=== PATIENT | female | born 1950 | race American Indian/Alaskan Native ===

== ENCOUNTER 2018-08-20 07:30 | Day surgery (SDC) | payer MEDICARE ==
[~2018-08-20 07:30] MED LIST: TETRACAINE 0.5% OD SCH
--- NOTE | 2018-08-20 08:55 | Anesthesia Day of Surgery ---
Anesthesia Day of Surgery - Day of Surgery Patient Examined: Yes Patient H&P Reviewed: Yes Patient is NPO: Yes
--- NOTE | 2018-08-20 08:55 | Anesthesia Consultation ---
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
[2018-08-20] MEDS ORDERED: NACL 0.9% 1000 ML 1,000 ML IV SCH (09:00)
[2018-08-20] MEDS ORDERED: PEPCID PO NR (09:00)
[2018-08-20] MEDS ORDERED: ZOFRAN IV PRN (09:00)
[2018-08-20] MEDS ORDERED: SUBLIMAZE IV PRN (09:00)
[2018-08-20] MEDS: VIGAMOX OD SCH ×3 (09:05→09:15)
[2018-08-20] MEDS: MYDRIACYL OD SCH ×3 (09:05→09:15)
[2018-08-20] MEDS: AK-Dilate OD SCH ×3 (09:05→09:15)
[2018-08-20] MEDS ORDERED: SUBLIMAZE ONE (09:47)
[2018-08-20] MEDS ORDERED: VERSED ONE (09:47)
[2018-08-20] MEDS ORDERED: PRED FORTE 1% OD NR (10:17)
--- NOTE | 2018-08-20 10:18 | Operative Report ---
Operative Report Operative Report: PATIENT'S NAME: DATE OF : DATE OF SURGERY: 08/20/2018 PREOPERATIVE DIAGNOSIS: Cataract right eye POSTOPERATIVE DIAGNOSIS: Same OPERATIVE PROCEDURE: Phacoemulsification with intraocular lens implantation, right eye SURGEON: Jasmyn Espinoza M.D. FLOW MATCH SOFA CUTTER SURGEON: Sara Lens: [id number] 22.5 D ANESTHESIA: Monitored anesthesia care in combination with topical and intracameral anesthesia because of the established specific risk of reflux, arrhythmias, or anxiety attacks associated with ocular manipulation, as well as the difficulty of the lithographer apprentice to manage such potentially catastrophic events while simultaneously attempting to complete the surgical procedure and was deemed necessary for the patient's safety to have an Driver Starting Gate present during the procedure whenever possible. An Driver Starting Gate was utilized to regulate the intravenous sedation of the patient so the patient was cooperative yet not asleep in order for the patient to successfully maintain fixation of the eye on the operating light of the microscope. COMPLICATIONS: No surgical complications No blood loss. ALLERGIES: Amoxicillin, TB PROGNOSIS: Excellent INDICATIONS FOR SURGERY: The patient is undergoing surgery in the hopes of eliminating or improving these visual difficulties. PROCEDURE: After arriving at the surgery center, the patient was given topical anesthetic and dilating drops, as noted in the record. The patient was then taken into the operating room and given more anesthetic drops. The eyelids, lashes, and lid margins were scrubbed with Betadine solution, and the patient was draped. The Nurse Driver Starting Gate administered IV sedation and monitored the patient during the procedure. The eye was then fixated with a 0.12, and a stab incision was made in the peripheral clear cornea into the anterior chamber. This was made on my left side. Viscoelastic was next used to fill the anterior chamber. The eye was once again fixated with the 0.12 forceps and a keratome was used make an incision in clear cornea peripherally on my right hand side temporally. The capsule forceps were used to open the central anterior capsule and then make a continuous round capsulotomy. Hydrodissection was carried out utilizing a cannula and balanced salt solution to delineate the cortical material from the capsule and the nucleus from the cortical material. The phaco tip was introduced into the eye and used to remove the anterior cortical material in the area of the capsulotomy. Then the phaco tip was buried into the nucleus, and a chopping instrument was introduced into the eye and used to provide countertraction in the nucleus between this instrument and the phaco tip fracturing the nucleus. This procedure was repeated multiple times, providing multiple small segments of the lens, and then the phaco tip was used to remove each of these segments. An I/A tip was then used to remove the remaining cortex. The anterior chamber was refilled with viscoelastic. An one-piece, acrylic intraocular lens was then placed into an inserting cartridge. The tip of the inserting cartridge was introduced into the keratome incision and into the anterior chamber. The implant was gently advanced through the cartridge and into the eye, where it unfolded, and both haptics were placed in the capsular bag, where it centered nicely and appeared to be well fixated. After placement of the intraocular lens, the I~and~A handpiece was placed back into the eye and used to remove the viscoelastic, including viscoelastic that was behind the optic of the intraocular lens. The anterior chamber was then filled with balanced salt solution, and hydration of the wound was used to cause swelling of the wound and more appropriate watertight closure. When the wound was found to be firm, the patient was asked to comment on how bright the light was. If there was no light perception at all or if the light was substantially dimmer than during the rest of the surgery, the amount of fluid in the eye was decompressed to lower the intraocular pressure until the patient could see the bright light again. This was done to avoid any damage or decreased blood flow to the optic nerve. MEDICATIONS APPLIED AT END OF SURGERY: One drop of Pred Forte and Vigamox The patient was given a shield to wear at night and was instructed not to rub or push on the eye. DISCHARGE SUMMARY: The patient was released in stable condition. The patient and those with the patient were given a written sheet of postoperative instructions and counseling on any abnormal laboratory studies. The patient is to see us tomorrow for follow-up in the office and is to call immediately for any difficulties. Jasmyn Espinoza M.D. Date
--- NOTE | 2018-08-20 10:19 | Short Stay Summary ---
Short Stay Documentation Date of service: 08/20/18 - History H&P: obtained from office - Allergies and Medications Current Medications: Allergies amoxicillin Allergy (Verified 08/19/18 18:11) Hives tuberculin, purified protein deriva Allergy (Verified 08/19/18 18:11) Swelling Home Medications Medication Instructions Recorded Confirmed Last Taken Type ALPRAZolam [Xanax TAB] 0.5 mg PO BID PRN 08/19/18 08/19/18 Unknown History Atorvastatin Calcium [Lipitor] 80 mg PO QHS 08/19/18 08/19/18 Unknown History Azilsartan Med/Chlorthalidone 1 each PO DAILY 08/19/18 08/19/18 Unknown History [Edarbyclor 40-25 mg] Cholecalciferol Vit D3 [Vitamin D3 400 unit PO QDAY 08/19/18 08/19/18 Unknown History 400 UNIT TAB] Cyclobenzaprine [Flexeril] 10 mg PO TID PRN 08/19/18 08/19/18 Unknown History DULoxetine [Cymbalta] 30 mg PO QHS 08/19/18 08/19/18 Unknown History Duloxetine HCl [Cymbalta] 60 mg PO QAM 08/19/18 08/19/18 Unknown History Fluticasone [Flonase] 1 spray NS QDAY 08/19/18 08/19/18 Unknown History Levothyroxine [Synthroid] 50 mcg PO QAM 08/19/18 08/19/18 Unknown History Omeprazole 80 mg PO QAM 08/19/18 08/19/18 Unknown History Zafirlukast [Accolate] 10 mg PO BID 08/19/18 08/19/18 Unknown History amLODIPine [Norvasc] 10 mg PO QHS 08/19/18 08/19/18 Unknown History cloNIDine [Catapres] 0.1 mg PO QHS 08/19/18 08/19/18 Unknown History cloNIDine-TTS PATCH [Catapres-Tts 1 patch TD Q7D 08/19/18 08/19/18 Unknown History 0.3mg Patch] metFORMIN [Glucophage] 500 mg PO BID 08/19/18 08/19/18 Unknown History Active Medications Acetazolamide (Diamox) 500 mg PO ONCE ONE Stop: 08/20/18 10:18 Famotidine (Pepcid) 20 mg PO PREOP NR Stop: 08/20/18 14:00 Fentanyl (Sublimaze) 50 mcg IV Q5MIN PRN PRN Reason: Pain , Severe (7-10) Stop: 08/20/18 20:00 Sodium Chloride (Nacl 0.9% 1000 Ml) 1,000 mls @ 75 mls/hr IV DIRECT KENDRA Moxifloxacin HCl (Vigamox) 1 drops OD Q5MIN KENDRA Stop: 08/20/18 23:59 Ondansetron HCl (Zofran) 4 mg IV ONCE PRN PRN Reason: Nausea And Vomiting Stop: 08/20/18 20:00 Phenylephrine HCl (Ak-Dilate) 1 drops OD Q5MIN KENDRA Stop: 08/20/18 23:59 Prednisolone Acetate (Pred Forte 1%) 1 drops OD ONCE ONE Stop: 08/20/18 10:18 Tetracaine HCl (Tetracaine 0.5%) 1 drops OD Q5M KENDRA Stop: 08/20/18 23:59 Tropicamide (Mydriacyl) 1 drops OD Q5MIN KENDRA Stop: 08/20/18 23:59 - Brief post op/procedure progress note Date of procedure: 08/20/18 Pre-op diagnosis: right cataract Post-op diagnosis: same Procedure: Phacoemulsification with intraocular lens insertion right eye Anesthesia: MAC, local Surgeon: ALLYSSA ROLDAN Estimated blood loss: none Pathology: none Condition: stable - Disposition Condition at discharge: Good Disposition: DC-01 TO HOME OR SELFCARE - Discharge Diagnoses (1) Cortical age-related cataract of right eye Status: Resolved Short Stay Discharge Plan Follow up with: LUISANA BENSON MD [Primary Care Provider] - 7 Days
[2018-08-20] MEDS ORDERED: DIAMOX PO NR (10:30)
[2018-08-20 11:09] VITALS: BP 115/75
--- NOTE | 2018-08-20 12:16 | Post Anesthesia Evaluation ---
- Post Anesthesia Evaluation Patient Participated: Yes Airway Patent: Yes Stable Respiratory Function: Yes Nausea/Vomiting: No Temp > 96.8F: Yes Pain Manageable: Yes Adequeate Hydration: Yes Anesthesia Complications: No
== END 2018-08-20 11:00 | disposition home or self-care (01) ==
LOC: OR 07:30
DX: E11.36 Type 2 diabetes mellitus with diabetic cataract (principal); H25.011 Cortical age-related cataract, right eye; E78.00 Pure hypercholesterolemia, unspecified; I10 Essential (primary) hypertension; J45.909 Unspecified asthma, uncomplicated; G47.30 Sleep apnea, unspecified; K21.9 Gastro-esophageal reflux disease without esophagitis; E66.9 Obesity, unspecified; E11.42 Type 2 diabetes mellitus with diabetic polyneuropathy; M19.90 Unspecified osteoarthritis, unspecified site; Z98.890 Other specified postprocedural states; Z80.8 Family history of malignant neoplasm of other organs or systems; Z88.6 Allergy status to analgesic agent; Z79.899 Other long term (current) drug therapy; Z79.84 Long term (current) use of oral hypoglycemic drugs; Z87.891 Personal history of nicotine dependence; Z90.49 Acquired absence of other specified parts of digestive tract; Z68.37 Body mass index [BMI] 37.0-37.9, adult; Z98.51 Tubal ligation status; Z88.8 Allergy status to other drugs, medicaments and biological substances; Z86.73 Personal history of transient ischemic attack (TIA), and cerebral infarction without residual deficits
CPT/HCPCS: 66984; 82962; J2250; J3010; V2632

== ENCOUNTER 2018-09-10 06:01 | Day surgery (SDC) | payer MEDICARE ==
[~2018-09-10 06:01] MED LIST changes: -TETRACAINE 0.5% OD SCH; +TETRACAINE 0.5% OS SCH
--- NOTE | 2018-09-10 06:44 | Anesthesia Consultation ---
Anesthesia Consult and Med Hx Date of service: 09/10/18 - Airway Anesthetic Teeth Evaluation: Dentures ROM Head & Neck: Adequate Mental/Hyoid Distance: Adequate Mallampati Class: Class II Intubation Access Assessment: Probably Good - Pulmonary Exam CTA: Yes - Cardiac Exam Cardiac Exam: RRR - Pre-Operative Health Status ASA Pre-Surgery Classification: ASA3 Proposed Anesthetic Plan: MAC - Pulmonary Hx Smoking: Yes (STARTED AGE 16; QUIT 1994) Hx Asthma: Yes (RESCUE INHALER, breathing at baseline today) Hx Sleep Apnea: Yes - Cardiovascular System Hx Hypertension: Yes (1993) - Central Nervous System CVA: Yes (1993-R SIDE WEAK) Hx Back Pain: Yes (R SCIATICA) Hx Psychiatric Problems: No - Gastrointestinal Hx Gastroesophageal Reflux Disease: Yes (no problems in a long time) - Endocrine Hx Non-Insulin Dependent Diabetes: Yes - Other Systems Hx Obesity: Yes
--- NOTE | 2018-09-10 06:44 | Anesthesia Day of Surgery ---
Anesthesia Day of Surgery - Day of Surgery Patient Examined: Yes Patient H&P Reviewed: Yes Patient is NPO: Yes
[2018-09-10] MEDS: AK-Dilate OS SCH ×3 (06:50→07:00)
[2018-09-10] MEDS: MYDRIACYL OS SCH ×3 (06:50→07:00)
[2018-09-10] MEDS: VIGAMOX OS SCH ×3 (06:50→07:00)
[2018-09-10] MEDS ORDERED: PEPCID PO NR (07:00)
[2018-09-10] MEDS ORDERED: WATER FOR IRRIG STERILE IR ONE (07:22)
[2018-09-10] MEDS ORDERED: VERSED ONE (07:23)
[2018-09-10] MEDS ORDERED: SUBLIMAZE ONE (07:23)
[2018-09-10] MEDS ORDERED: mitoMYcin 0.02% Opth Soln *OR USE ONLY OP ONE (08:42)
--- NOTE | 2018-09-10 08:43 | Operative Report ---
Operative Report Operative Report: PATIENT'S NAME: DATE OF : DATE OF SURGERY: 09/10/2018 PREOPERATIVE DIAGNOSIS: Cataract left eye POSTOPERATIVE DIAGNOSIS: Same OPERATIVE PROCEDURE: Phacoemulsification with intraocular lens implantation, left eye SURGEON: Jasmyn Espinoza M.D. COLLECTION CARD CLERK SURGEON: Sara Lens: [id number] 21.5 D ANESTHESIA: Monitored anesthesia care in combination with topical and intracameral anesthesia because of the established specific risk of reflux, arrhythmias, or anxiety attacks associated with ocular manipulation, as well as the difficulty of the medical officer psychiatry to manage such potentially catastrophic events while simultaneously attempting to complete the surgical procedure and was deemed necessary for the patient's safety to have an General Accounting Clerk present during the procedure whenever possible. An General Accounting Clerk was utilized to regulate the intravenous sedation of the patient so the patient was cooperative yet not asleep in order for the patient to successfully maintain fixation of the eye on the operating light of the microscope. COMPLICATIONS: No surgical complications No blood loss. ALLERGIES: Amoxicillin, TB PROGNOSIS: Excellent INDICATIONS FOR SURGERY: The patient is undergoing surgery in the hopes of eliminating or improving these visual difficulties. PROCEDURE: After arriving at the surgery center, the patient was given topical anesthetic and dilating drops, as noted in the record. The patient was then taken into the operating room and given more anesthetic drops. The eyelids, lashes, and lid margins were scrubbed with Betadine solution, and the patient was draped. The Nurse General Accounting Clerk administered IV sedation and monitored the patient during the procedure. The eye was then fixated with a 0.12, and a stab incision was made in the peripheral clear cornea into the anterior chamber. This was made on my left side. Viscoelastic was next used to fill the anterior chamber. The eye was once again fixated with the 0.12 forceps and a keratome was used make an incision in clear cornea peripherally on my right hand side temporally. The capsule forceps were used to open the central anterior capsule and then make a continuous round capsulotomy. Hydrodissection was carried out utilizing a cannula and balanced salt solution to delineate the cortical material from the capsule and the nucleus from the cortical material. The phaco tip was introduced into the eye and used to remove the anterior cortical material in the area of the capsulotomy. Then the phaco tip was buried into the nucleus, and a chopping instrument was introduced into the eye and used to provide countertraction in the nucleus between this instrument and the phaco tip fracturing the nucleus. This procedure was repeated multiple times, providing multiple small segments of the lens, and then the phaco tip was used to remove each of these segments. An I/A tip was then used to remove the remaining cortex. The anterior chamber was refilled with viscoelastic. An one-piece, acrylic intraocular lens was then placed into an inserting cartridge. The tip of the inserting cartridge was introduced into the keratome incision and into the anterior chamber. The implant was gently advanced through the cartridge and into the eye, where it unfolded, and both haptics were placed in the capsular bag, where it centered nicely and appeared to be well fixated. After placement of the intraocular lens, the I~and~A handpiece was placed back into the eye and used to remove the viscoelastic, including viscoelastic that was behind the optic of the intraocular lens. The anterior chamber was then filled with balanced salt solution, and hydration of the wound was used to cause swelling of the wound and more appropriate watertight closure. When the wound was found to be firm, the patient was asked to comment on how bright the light was. If there was no light perception at all or if the light was substantially dimmer than during the rest of the surgery, the amount of fluid in the eye was decompressed to lower the intraocular pressure until the patient could see the bright light again. This was done to avoid any damage or decreased blood flow to the optic nerve. MEDICATIONS APPLIED AT END OF SURGERY: One drop of Pred Forte and Vigamox The patient was given a shield to wear at night and was instructed not to rub or push on the eye. DISCHARGE SUMMARY: The patient was released in stable condition. The patient and those with the patient were given a written sheet of postoperative instructions and counseling on any abnormal laboratory studies. The patient is to see us tomorrow for follow-up in the office and is to call immediately for any difficulties. Jasmyn Espinoza M.D. Date
--- NOTE | 2018-09-10 08:44 | Short Stay Summary ---
Short Stay Documentation Date of service: 09/10/18 - History H&P: obtained from office - Allergies and Medications Current Medications: Allergies amoxicillin Allergy (Verified 09/09/18 09:18) Hives tuberculin, purified protein deriva Allergy (Verified 09/09/18 09:18) Swelling Home Medications Medication Instructions Recorded Confirmed Last Taken Type ALPRAZolam [Xanax TAB] 0.5 mg PO BID PRN 08/19/18 09/09/18 08/19/18 08:00 History Atorvastatin Calcium [Lipitor] 80 mg PO QHS 08/19/18 09/09/18 08/19/18 18:00 History Azilsartan Med/Chlorthalidone 1 each PO DAILY 08/19/18 09/09/18 08/19/18 08:00 History [Edarbyclor 40-25 mg] Cholecalciferol Vit D3 [Vitamin D3 400 unit PO QDAY 08/19/18 09/09/18 08/19/18 08:00 History 400 UNIT TAB] Cyclobenzaprine [Flexeril] 10 mg PO TID PRN 08/19/18 09/09/18 08/19/18 08:00 History DULoxetine [Cymbalta] 30 mg PO QHS 08/19/18 09/09/18 08/19/18 08:00 History Duloxetine HCl [Cymbalta] 60 mg PO QAM 08/19/18 09/09/18 08/19/18 08:00 History Fluticasone [Flonase] 1 spray NS QDAY 08/19/18 09/09/18 08/19/18 08:00 History Levothyroxine [Synthroid] 50 mcg PO QAM 08/19/18 09/09/18 08/20/18 06:00 History Omeprazole 80 mg PO QAM 08/19/18 09/09/18 08/19/18 08:00 History Zafirlukast [Accolate] 10 mg PO BID 08/19/18 09/09/18 08/19/18 08:00 History amLODIPine [Norvasc] 10 mg PO QHS 08/19/18 09/09/18 08/19/18 08:00 History cloNIDine [Catapres] 0.1 mg PO QHS 08/19/18 09/09/18 08/19/18 08:00 History cloNIDine-TTS PATCH [Catapres-Tts 1 patch TD Q7D 08/19/18 09/09/18 Unknown History 0.3mg Patch] metFORMIN [Glucophage] 500 mg PO BID 08/19/18 09/09/18 08/19/18 18:00 History Active Medications Famotidine (Pepcid) 20 mg PO PREOP NR Stop: 09/10/18 23:59 Last Admin: 09/10/18 07:38 Dose: 20 mg Documented by: Mitomycin (Mitomycin 0.02% Opth Soln *Or Use Only*) 2 drops OP ONCE ONE Stop: 09/10/18 08:43 Moxifloxacin HCl (Vigamox) 1 drops OS Q5MIN KENDRA Stop: 09/10/18 23:59 Last Admin: 09/10/18 07:00 Dose: 1 drops Documented by: Phenylephrine HCl (Ak-Dilate) 1 drops OS Q5MIN KENDRA Stop: 09/10/18 23:59 Last Admin: 09/10/18 07:00 Dose: 1 drops Documented by: Prednisolone Acetate (Pred Forte 1%) 1 drops OS ONCE NR Tetracaine HCl (Tetracaine 0.5%) 1 drops OS Q5M KENDRA Stop: 09/10/18 23:59 Last Admin: 09/10/18 06:50 Dose: 1 drops Documented by: Tropicamide (Mydriacyl) 1 drops OS Q5MIN KENDRA Stop: 09/10/18 23:59 Last Admin: 09/10/18 07:00 Dose: 1 drops Documented by: - Brief post op/procedure progress note Date of procedure: 09/10/18 Pre-op diagnosis: left cataract Post-op diagnosis: same Procedure: Phacoemulsification with intraocular lens insertion left eye Anesthesia: MAC, local Surgeon: ALLYSSA ROLDAN Estimated blood loss: none Pathology: none Condition: stable - Disposition Condition at discharge: Good Disposition: DC-01 TO HOME OR SELFCARE - Discharge Diagnoses (1) Cortical age-related cataract of left eye Status: Resolved Short Stay Discharge Plan Follow up with: LUISANA BENSON MD [Primary Care Provider] - 7 Days
--- NOTE | 2018-09-10 08:58 | Post Anesthesia Evaluation ---
- Post Anesthesia Evaluation Patient Participated: Yes Airway Patent: Yes Stable Respiratory Function: Yes Temp > 96.8F: Yes Pain Manageable: Yes Adequeate Hydration: Yes Anesthesia Complications: No
[2018-09-10] MEDS ORDERED: PRED FORTE 1% OS NR (09:00)
[2018-09-10] MEDS ORDERED: DIAMOX PO ONE (10:00)
[2018-09-10] MEDS ORDERED: DIAMOX ONE (12:29)
[2018-09-10 14:27] VITALS: BP 122/85
== END 2018-09-10 09:20 | disposition home or self-care (01) ==
LOC: OR 06:01
DX: E11.36 Type 2 diabetes mellitus with diabetic cataract (principal); H25.012 Cortical age-related cataract, left eye; E11.51 Type 2 diabetes mellitus with diabetic peripheral angiopathy without gangrene; E78.00 Pure hypercholesterolemia, unspecified; I10 Essential (primary) hypertension; J45.909 Unspecified asthma, uncomplicated; G47.30 Sleep apnea, unspecified; K21.9 Gastro-esophageal reflux disease without esophagitis; E66.9 Obesity, unspecified; Z90.49 Acquired absence of other specified parts of digestive tract; Z68.37 Body mass index [BMI] 37.0-37.9, adult; Z98.51 Tubal ligation status; Z80.8 Family history of malignant neoplasm of other organs or systems; Z98.890 Other specified postprocedural states; Z88.6 Allergy status to analgesic agent; Z79.899 Other long term (current) drug therapy; Z79.84 Long term (current) use of oral hypoglycemic drugs; Z87.891 Personal history of nicotine dependence; Z98.41 Cataract extraction status, right eye; Z86.73 Personal history of transient ischemic attack (TIA), and cerebral infarction without residual deficits; Z88.8 Allergy status to other drugs, medicaments and biological substances
CPT/HCPCS: 66984; 82962; J2250; J3010; V2632